=== PATIENT | female | born 1985 | race Hispanic/Latino ===

== ENCOUNTER 2021-07-23 14:11 | Emergency (ER) | payer SELFPAY ==
[2021-07-23 14:16] VITALS: BP 150/100
--- NOTE | 2021-07-23 14:52 | Emergency Department Report ---
ED Chest Pain HPI - General Chief Complaint: Chest Pain Stated Complaint: CHEST PAIN Time Seen by Provider: 07/23/21 14:30 Source: patient Mode of arrival: Ambulatory Limitations: No Limitations - History of Present Illness Initial Comments: 36-year-old female, history of DVT, PE, CHF, presents to ED with chest pain or shortness of breath. Patient reports worsening dyspnea on exertion over the last 2 weeks. Patient reports no substernal pressure-like chest pain over the last 2 days. Patient states approximately 2 months ago she was diagnosed with a PE. Patient states she took Xarelto for 1 month and then ran out of medication. Patient states her follow-up appointment with [facility] is not until next month, so she has been off of her Xarelto for approximately 1 month now. Patient states she has still been taking her Lasix 20 mg. Patient reports cough, denies fever. Patient is unvaccinated against COVID-19. 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 MD Complaint: chest pain -: week(s) (1) Onset: during rest, during exertion Pain Location: substernal Pain Radiation: none Severity: moderate Quality: pressure Consistency: intermittent Improves With: nothing Worsens With: exertion re: dyspnea. denies: nausea, vomting, diaphoresis Other Symptoms: cough. denies: fever, leg swelling - Related Data Previous Rx's Medication Instructions Recorded Last Taken Type Rivaroxaban [Xarelto] 15 mg PO BID 21 Days #42 tablet 07/23/21 Unknown Rx Rivaroxaban [Xarelto] 20 mg PO QDAY #30 tab 07/23/21 Unknown Rx Allergies Allergy/AdvReac Type Severity Reaction Status Date / Time No Known Allergies Allergy Verified 07/23/21 14:16 Heart Score - HEART Score History: Slightly suspicious EKG: Non-specific Age: < 45 Risk factors: 1-2 risk factors Troponin: < normal limit HEART Score: 2 - EKG Read Time Time EKG Completed: 14:42 EKG Read Time: 14:46 ED Review of Systems ROS: Stated complaint: CHEST PAIN Other details as noted in HPI Comment: All other systems reviewed and negative Constitutional: denies: chills, fever Respiratory: cough, SOB with exertion Cardiovascular: chest pain Gastrointestinal: denies: nausea, vomiting Musculoskeletal: other (Denies leg pain or swelling) ED Past Medical Hx - Past Medical History Previous Medical History?: Yes Hx Hypertension: Yes Hx Congestive Heart Failure: Yes - Surgical History Past Surgical History?: No - Social History Smoking Status: Former Smoker Substance Use Type: None - Medications Home Medications: Home Medications Medication Instructions Recorded Confirmed Last Taken Type Rivaroxaban [Xarelto] 15 mg PO BID 21 Days #42 tablet 07/23/21 Unknown Rx Rivaroxaban [Xarelto] 20 mg PO QDAY #30 tab 07/23/21 Unknown Rx ED Physical Exam - General Limitations: No Limitations General appearance: alert, in no apparent distress - Head Head exam: Present: atraumatic, normocephalic - Eye Eye exam: Present: normal appearance, EOMI - ENT ENT exam: Present: mucous membranes moist - Neck Neck exam: Present: normal inspection - Respiratory Respiratory exam: Present: normal lung sounds bilaterally. Absent: respiratory distress - Cardiovascular Cardiovascular Exam: Present: regular rate, normal rhythm - GI/Abdominal GI/Abdominal exam: Present: soft. Absent: distended, tenderness - Extremities Exam Extremities exam: Present: normal inspection. Absent: pedal edema, calf tenderness - Neurological Exam Neurological exam: Present: alert, oriented X3 - Psychiatric Psychiatric exam: Present: normal affect, normal mood - Skin Skin exam: Present: warm, dry, intact, normal color ED Course Vital Signs 07/23/21 07/23/21 14:13 14:45 Temperature 98 F Pulse Rate 88 Respiratory 16 Rate Blood Pressure 150/100 [Left] O2 Sat by Pulse 92 95 Oximetry - Reevaluation(s) Reevaluation #1: 07/23/21 16:42 Pt refusing CTA. ED Medical Decision Making - Lab Data Result diagrams: 07/23/21 14:55 07/23/21 14:55 - EKG Data -: EKG Interpreted by Mo EKG shows normal: sinus rhythm, ST-T waves Rate: tachycardia - EKG Data Interpretation: LVH - Radiology Data Radiology results: report reviewed, image reviewed - Medical Decision Making 36-year-old female with history of PE and CHF presents to ED with shortness of breath and chest pain. Patient reports she has been off of her Xarelto x1 month. EKG unremarkable. Troponin is negative. BNP is elevated. Chest x-ray shows some congestion and minimal pleural effusions bilaterally. Patient is in no respiratory distress. O2 sats are normal. Patient refusing CTA. Wants to leave AMA. AMA form signed. Patient understands risks. Will give prescription for her Xarelto. Will give a dose of Lasix here in the ED. Patient reports she has an upcoming appointment at [facility]. Return precautions given. - Differential Diagnosis PE, CHF, ACS Critical care attestation.: If time is entered above; I have spent that time in minutes in the direct care of this critically ill patient, excluding procedure time. ED Disposition Clinical Impression: History of pulmonary embolism, CHF (congestive heart failure) Disposition: LEFT AGAINST MEDICAL ADVICE Is pt being admited?: No Condition: Stable Additional Instructions: Take 15 mg tablet twice a day for 21 days, then take 20 mg tablet once daily. Prescriptions: Rivaroxaban [Xarelto] 15 mg PO BID 21 Days #42 tablet Rivaroxaban [Xarelto] 20 mg PO QDAY #30 tab Referrals: PRIMARY CARE, [Primary Care Provider] - 3-5 Days Time of Disposition: 16:49
[2021-07-23 15:19] LABS: Basophils # (Auto) 0.1 K/mm3 (0.0-0.1); Basophils % (Auto) 0.8 % (0.0-1.8); Eosinophils % (Auto) 0.2 % (0.0-4.3); Lymphocytes # (Auto) 0.7 K/mm3 (1.2-5.4); Lymphocytes % (Auto) 6.4 % (13.4-35.0); Mean Corpuscular HGB Conc 31 % (30-34); Mean Corpuscular Volume 79 fl (79-97); Monocytes # (Auto) 0.6 K/mm3 (0.0-0.8); Monocytes % (Auto) 6.2 % (0.0-7.3); Platelet Count 355 K/mm3 (140-440); Red Cell Distribution Width 19.3 % (13.2-15.2)
--- NOTE | 2021-07-23 15:26 | XRay Report ---
CHEST 1 VIEW INDICATION / CLINICAL INFORMATION: cp, SOB STUDY TIME: 2 COMPARISON: None available. FINDINGS: SUPPORT DEVICES: None HEART / MEDIASTINUM: Mild cardiomegaly LUNGS / PLEURA: Mildly congested appearance is noted. Mild increased markings in the lung bases proba gen relates to the congestive process. There appear to be minimal bilateral pleural effusions. No pne umothorax. ADDITIONAL FINDINGS: No significant additional findings. Signer Name: Oskar Lawler MD Signed: 07/23/2021 3:22 PM Workstation Name: [id number]
[2021-07-23 15:31] LABS: Blood Urea Nitrogen 8 mg/dL (7-17); Calcium 8.7 mg/dL (8.4-10.2); Hemolysis Index 5; INR 1.05 (0.87-1.13); Partial Thromboplastin Time 28.1 Sec. (24.2-36.6)
[2021-07-23 15:32] LABS: BUN/Creatinine Ratio 13
[2021-07-23 15:44] LABS: Hematocrit 40.1 % (30.3-42.9); Hemoglobin 12.3 gm/dl (10.1-14.3)
[2021-07-23] MEDS ORDERED: FUROSEMIDE 20 MG TAB PO ONE (16:44)
--- NOTE | 2021-07-24 10:44 | Electrocardiograph Report ---
[facility] Test Date: 2021-07-23 Test Time: 14:42:05 Pat Name: CELY LING Department: Room: Gender: F Inside Finisher: Juan Antonio : 1985 Requested By: EDIN LUIS Order Number: [id number] Reading MD: Kevin Licea Measurements Intervals Wesley Rate: 120 P: 76 [place]: 144 QRS: 82 QRSD: 89 T: -26 QT: 335 QTc: 474 Interpretive Statements Sinus tachycardia Left atrial enlargement Probable anterior infarct, old No previous ECG available for comparison Electronically Signed On 07-24-2021 10:43:37 EST by Kevin Licea
== END 2021-07-23 17:11 | disposition left against medical advice (07) ==
LOC: ED 14:11
DX: I11.0 Hypertensive heart disease with heart failure (principal); I50.9 Heart failure, unspecified; Z86.711 Personal history of pulmonary embolism; Z87.891 Personal history of nicotine dependence; Z79.899 Other long term (current) drug therapy
CPT/HCPCS: 36415; 71045; 80048; 83880; 84484; 85025; 85379; 85610; 85730; 93005; 99284